=== PATIENT | female | born 1980 | race American Indian/Alaskan Native ===

== ENCOUNTER 2017-05-10 06:12 | Day surgery (SDC) | payer BC, OTHER ==
[2017-05-10 06:21] VITALS: BMI 21.4
[2017-05-10 06:52] LABS: BASO # 0.1 K/uL (0.0-0.2); EOS # 0.6 K/uL (0.0-0.7); EOS % 7.4 % (0.0-4.0); HEMATOCRIT 43.3 % (34.0-47.0); LYMPH # 2.6 K/uL (1.0-4.3); LYMPH % 32.6 % (20.0-40.0); MEAN CELL VOLUME 93.3 fl (81.0-99.0); MEAN CORPUSCULAR HEMOGLOBIN 29.8 pg (27.0-31.0); MEAN PLATELET VOLUME 9.5 fl (7.2-11.7); MONO # 0.6 K/uL (0.0-0.8); MONO % 7.9 % (0.0-10.0); NEUT % 51.1 % (50.0-75.0); RED CELL DISTRIBUTION WIDTH 14.8 % (11.5-14.5); WHITE BLOOD COUNT 7.9 K/uL (4.8-10.8)
[2017-05-10] MEDS ORDERED: Rocuronium 10 mg/ml (5 ml) ONE (07:28)
[2017-05-10] MEDS ORDERED: Lidocaine 4% (Laryng-O-Jet) Kit MM ONE (07:28)
[2017-05-10] MEDS ORDERED: Succinylcholine 200 mg/10 ml Inj IV ONE (07:28)
[2017-05-10] MEDS ORDERED: Propofol 10 mg/ml Inj (20 ML) ONE (07:28)
[2017-05-10] MEDS ORDERED: Midazolam 2 MG/2 ML VIAL ONE (07:28)
[2017-05-10] MEDS ORDERED: ePHEDrine 50 mg/ml Inj ONE (07:28)
[2017-05-10] MEDS ORDERED: Lactated Ringer's 1,000 ML IV ONE ×2 (08:30→08:45)
[2017-05-10] MEDS: Bupivacaine 0.5% Inj(30mL) ONE ×2 (08:56→09:00)
[2017-05-10] MEDS ORDERED: Dexamethasone 4 mg/1 ml ONE (09:02)
[2017-05-10] MEDS ORDERED: Lactated Ringer's 1,000 ML IV SCH (10:38)
[2017-05-10] MEDS ORDERED: Liquid Adhesive TOP ONE (10:53)
[2017-05-10] MEDS ORDERED: Oxycodone/Acetaminophen 5/325 mg Tab PO PRN (11:05)
[2017-05-10] MEDS: HYDROmorphone 0.5 mg/0.5 ml ISec IVP PRN ×2 (11:30→11:40)
[2017-05-10 13:06] VITALS: RESP 18
[2017-05-10 16:28] VITALS: BP 99/58; PULSE 77; TEMP 98.4; O2SAT 99
--- NOTE | 2017-05-14 10:19 | PCM.OP ---
Operative Report - Operative Report Date of Surgery/Procedure: 05/10/17 Time of Surgery/Procedure: 08:00 Surgeon: Dr. Tru Patel Cashier Manager: Dr. Leland Soto Anesthesia/Sedation: general/Dr. Alexander Pre-Operative Diagnosis: Endometriosis and abdominal pain Post-Operative Diagnosis: same Indication for Surgery: Endometriosis and abdominal pain Operative Findings: Multiple adhesions involving the sigmoid colon, small bowel and peritoneal pelvic floor Procedure/Operation Description: Lysis of sigmoid colon adhesions to the pelvic peritoneum, question of small bowel stricture. Brief History: Dr. Leland soto had already taken the patient to the operating room and intiated the robotic procedure when he noticed multiple adhesions obscuring the pelvic floor. Intraoperative consultation was obtained. Descitption of the Procedure: Dr. Soto had intiated the robotic procedure (separate dictation Dr. Soto). Using the robitic console the area in question was exmained and the adhesions invovled the pelvic floor as well as a small bowel adhesion to the right lateral peritoneum. Using blunt dissection the small bowel was addressed first and there seemed to be a small bowel stricture at first, however, upon furhter examination this was thought to be normal bowel. Our attention then turned to the sigmoid colon which was involving the pelvic floor. Using blunt and sharp dissection with the aid of electrocautery the sigmoid colon was disected from the pelvic floor as well as from the lateral peritoneal space. The colon was dissected to the level of the pelvic floor and once released was retracted superiorly. The pelvic space was now accessable and the operation was again turned over to Dr. Soto (separate dication Dr. Soto). Estimated Blood Loss: 2 cc Complications: none Specimen: none Discharge & Condition: stable
--- NOTE | 2017-05-16 23:22 | OP ---
PROCEDURE DATE: 05/10/2017 PREOPERATIVE DIAGNOSES: Pelvic pain, dysmenorrhea, dyspareunia, bladder pain, history of endometriosis, history of hydrosalpinges. POSTOPERATIVE DIAGNOSES: Pelvic pain, dysmenorrhea, dyspareunia, bladder pain, history of endometriosis, history of hydrosalpinges and pelvic adhesions. PROCEDURE PERFORMED: Cystoscopy with bilateral ureteral catheterization and stenting, retrograde injection of IC green into the right and left ureters, diagnostic hysteroscopy, laparoscopy, robotic Da Erin bilateral salpingectomy and excision of endometriosis, ovariolysis and right ureterolysis. Dr. Patel is to be dictating separately a lysis of adhesions from general surgery. SURGEON: Leland Soto MD PIZZA CHEF: Tru Patel MD, from general surgery ESTIMATED BLOOD LOSS: Minimal. COMPLICATIONS: None. SAMPLES: Multiple samples sent to pathology including left and right fallopian tube drains, Cummings catheter. BRIEF HISTORY: This patient is a 37-year-old patient who presented with a history of prior surgery multiple times for pelvic pain and endometriosis and she had progressive significant symptoms unresolved. Ultrasound revealed presence of bilateral hydrosalpinges as well as very significant pain on exam. Prior to the surgery, she was counseled with regard to risks and benefits of the procedure, and she also understood that given her history of prior surgeries and bladder pain, it was necessary to perform a cystoscopy as well as injection of dye in both ureters in order to make the procedure safer given her history of multiple prior surgeries. At this point, the patient signed the consent and was taken to the OR. DESCRIPTION OF PROCEDURE: After the patient was taken to the OR an IV was started and the patient was placed under generalized anesthesia. After satisfactory anesthesia was induced the patient was placed in the dorsal lithotomy position with great care to position her with all areas prone to pressure with excellent padding. At this point, the external genitalia and the abdomen were sterilely prepped and draped in the standard fashion. A time out was performed and at this point, the cystoscopy was inserted into the bladder under direct vision. A paredes-cystoscopy was performed and attention was paid to both ureteral orifices, which were in normal anatomical position. The left ureteral orifice was then catheterized with a 10-Israeli open-ended ureteral catheter, a solution of ICG was then injected for a 4 mL into the left ureteral catheter at the distal ureter. The ureteral catheter was then removed. Attention was then paid to the right ureteral orifice and at this point, an ureteral catheter was advanced to the level of the right distal ureter. In addition 4 mL of IC green were injected into right distal ureter. The ureteral catheter was then removed. The bladder was then inspected and noted to be free of tumors, stones, or bleeding sources. The cystoscopy was then removed and a 16-Israeli Cummings catheter was placed. At this point, attention was in the vaginal area where a speculum was placed in the vagina. Anterior lip of the cervix was visualized and grasped until the uterus was dilated and hysteroscope was inserted into the uterine cavity. The cavity appeared to be normal in shape without any fibroids, polyps, both tubal ostia were visualized and at this point, an uterine manipulator was placed in the uterus and attention was on the abdomen. After rescrubbing and regowning an incision was made below the umbilicus with the careful open laparoscopy technique. The abdominal cavity was entered bluntly and a blunt trocar was inserted in the abdomen and the abdomen was insufflated. Adhesions were immediately noticed after insufflation and Dr. Patel from general surgery was called in. An additional trocar was placed and through this trocar a lysis of adhesions was performed. The adhesions were from the prior surgery. At this point, he will dictate separately. At this point, two additional trocar were inserted, left mid quadrant and right upper quadrant. At this point, Da Erin robot XI was brought on to the field. It was docked and targeted and the procedure was commenced. The findings were as follows, there were some pelvic adhesions and abdominal adhesions that were present. Prior to entering the pelvis these were lysed by Dr. Patel from general surgery. There was an area by the right small bowel that appeared significantly adhered to the right pelvic sidewall and appeared to have a very small stricture, which was analyzing that by Dr. Patel who ultimately decided to just image and not intervene at this time. At this point, attention was on the pelvis where both ovaries adhered to the pelvic side wall, but more severely on the right hand side. Both ovaries appeared to be slightly smaller than averaging size. At this point, the attention was on the left hand side where the left tube appeared to have a large hydrosalpinx. Using both bipolar cautery and scissor the left hydrosalpinx was excised proceeding along the undersurface of the tube without injuring the meso of the ovary at all. On the right hand side the situation was much more complicated as the left ovary was completely stuck to the pelvic side wall adherent with what appeared to be endometriotic type tissue. The ureter was identified utilizing florescence and the peritoneum was entered and the ureter was lateralized and freed. Once this was done, along with the pelvic side wall, peritoneum was elevated and freed. The ovary was completely severely adherent to the right pelvic side wall and ovarian fossa. Once this was done, the fallopian tube appeared to be completely convoluted and completely turned around and it was progressively freed with black endometriosis like fluid noticed coming out. Again, a salpingectomy was performed on the right hand side commencing on the proximal end by the uterus and dissecting very slowly along the mesosalpinx very proximal to the tube in order not to damage the ovary and blood supply to the ovary. Once this extensive dissection was performed both specimens were removed within End[facility] and sent to pathology. The rest of the pelvis was examined and appeared to be in good condition. The right ureter was in perfect condition. The pelvis was abundantly irrigated. The bowel appeared to be in good condition with no damages. At this point, the Da Erin robot was undocked. All the instruments were removed and the incisions were closed in layers with 0 PDS for the fascia and 4-0 Monocryl for the skin. At the end of the procedure, all tapes and instruments counts are correct. The patient tolerated the procedure well and was taken to recovery room in excellent condition. Leland Soto MD
== END 2017-05-10 16:30 | disposition home or self-care (01) ==
LOC: H.OPSURG 06:12
PROVIDERS: ATTEND Obstetrics & Gynecology Reproductive Endocrinology
DX: R10.2 Pelvic and perineal pain (principal); N94.6 Dysmenorrhea, unspecified; N94.19 Other specified dyspareunia; R39.89 Other symptoms and signs involving the genitourinary system; N73.6 Female pelvic peritoneal adhesions (postinfective)
CPT/HCPCS: 36415; 44180; 52005; 58555; 85025; 86850; 86900; 88305; C1729; J0330; J0690; J1100; J1170; J2001; J2250; J2405; J2704; J2765; J3010; J7030; J7040; J7120

== ENCOUNTER 2018-04-18 09:04 | Day surgery (SDC) | payer BC ==
[2018-04-17 14:04] VITALS: BMI 24.5
[2018-04-18 09:58] LABS: BASO # 0.2 K/uL (0.0-0.2); EOS # 0.1 K/uL (0.0-0.7); EOS % 0.4 % (0.0-4.0); HEMOGLOBIN 14.2 g/dL (12.0-16.0); LYMPH % 19.1 % (20.0-40.0); MEAN CELL VOLUME 97.2 fl (81.0-99.0); MEAN CORPUSCULAR HGB CONC 32.9 g/dL (33.0-37.0); MEAN PLATELET VOLUME 9.2 fl (7.2-11.7); MONO % 4.6 % (0.0-10.0); NEUT # 15.6 K/uL (1.8-7.0); NEUT % 74.9 % (50.0-75.0); NRBC % 0.1 % (0.0-0.0); RBC 4.45 Mil/uL (3.80-5.20); RED CELL DISTRIBUTION WIDTH 16.2 % (11.5-14.5); WHITE BLOOD COUNT 20.8 K/uL (4.8-10.8)
[2018-04-18] MEDS ORDERED: ceFAZolin IV 2 gm in Dextrose 2 GM/50 ML BAG IVPB ONE (10:38)
[2018-04-18] MEDS ORDERED: Oxytocin 10 Units/ml Inj ONE (10:38)
[2018-04-18] MEDS ORDERED: Propofol 10 mg/ml Inj (20 ML) ONE (10:50)
[2018-04-18] MEDS ORDERED: Midazolam 2 MG/2 ML VIAL ONE (10:50)
[2018-04-18] MEDS ORDERED: Rocuronium 10 mg/ml (5 ml) ONE (10:50)
[2018-04-18] MEDS ORDERED: Succinylcholine 200 mg/10 ml Inj IV ONE (10:54)
[2018-04-18] MEDS ORDERED: Sevoflurane - Inhalation Anesthetic Liq (250 ml) ONE (11:01)
[2018-04-18] MEDS ORDERED: Tranexamic Acid 1,000 MG in Sodium Chloride 0.9% 100 ML IVPB ONE (11:31)
[2018-04-18] MEDS ORDERED: MethylPREDNISolone 40 mg Vial ONE (11:41)
[2018-04-18] MEDS ORDERED: Lactated Ringer's 1,000 ML IV ONE ×2 (12:00→13:30)
[2018-04-18] MEDS ORDERED: HYDROmorphone 0.5 mg/0.5 ml ISec IVP PRN (12:32)
[2018-04-18] MEDS ORDERED: Acetaminophen 650mg/20.3ml solution UD PO PRN (12:32)
[2018-04-18] MEDS ORDERED: Lactated Ringer's 1,000 ML IV SCH (12:45)
[2018-04-18 14:13] VITALS: RESP 18
[2018-04-18 16:08] VITALS: BP 113/56; PULSE 89; TEMP 98.8; O2SAT 96
--- NOTE | 2018-04-29 13:53 | OP ---
PROCEDURE DATE: 04/18/2018 SURGEON: Leland Soto MD STOPPER SETTER:None ANESTHESIOLOGIST: Rito Marr MD ANESTHETIC: General Endo PREOPERATIVE DIAGNOSES: MISSED POSTOPERATIVE DIAGNOSES: MISSED OPERATION PERFORMED: Ultrasound Guided Suction D&C COMPLICATIONS: None. SAMPLES: POC, Chromosomal Maternal Tissue, Maternal Blood DRAINS: ESTIMATED BLOOD LOSS: 100cc. HISTORY: PROVIDES HISTORY FINDINGS: 9 weeks size uterus CONSENT: The patient had been thoroughly evaluated and counseled regarding pros and cons of the procedure, the reasonable alternative, and the possible complications. She understood and accepted the risks involved. She accepted all the risks involved and all the questions had been answered to her satisfaction. DESCRIPTION OF PROCEDURE: Initiation of the case: After adequate anesthesia was obtained, the patient was placed in the dorsal lithotomy position with extreme care of placement of the patient without hyperextension or hyperflexing the hips. At this point, the patient was prepped and draped, the surgeon was gowned and gloved. A time- out was taken according to the hospital procedure and the procedure was started. After emptying the bladder the cervix was dilated under direct ultrasound visualization. A 10 somali cannula was inserted in the cavity and abundant products of conceptions were obtained. The cannula was removed and the cavity was checked with ultrasound. Therewas no deed for additional curetting. The patient was waken up and taken to recovery room in excellent condition Leland Soto MD [facility]
== END 2018-04-18 16:30 | disposition home or self-care (01) ==
LOC: H.OPSURG 09:04
PROVIDERS: ATTEND Obstetrics & Gynecology Reproductive Endocrinology
DX: O02.1 Missed abortion (principal)
CPT/HCPCS: 36415; 59820; 85025; 86850; 86900; 88300; 88305; J0330; J0690; J2001; J2210; J2250; J2405; J2704; J2920; J3010; J7030; J7120

== ENCOUNTER 2018-12-03 07:54 | Day surgery (SDC) | payer BC ==
[2018-11-28 12:27] VITALS: BMI 25.4
[2018-12-03 09:15] LABS: BASO % 0.2 % (0.0-2.0); EOS # 0.1 K/uL (0.0-0.7); EOS % 0.7 % (0.0-4.0); HEMOGLOBIN 12.5 g/dL (12.0-16.0); LYMPH # 3.6 K/uL (1.0-4.3); LYMPH % 27.7 % (20.0-40.0); MEAN CELL VOLUME 96.5 fl (81.0-99.0); MEAN CORPUSCULAR HEMOGLOBIN 31.5 pg (27.0-31.0); MEAN CORPUSCULAR HGB CONC 32.6 g/dL (33.0-37.0); MEAN PLATELET VOLUME 8.6 fl (7.2-11.7); MONO # 0.8 K/uL (0.0-0.8); MONO % 6.6 % (0.0-10.0); NEUT # 8.3 K/uL (1.8-7.0); NEUT % 64.8 % (50.0-75.0); NRBC % 0.1 % (0.0-0.0); RBC 3.97 Mil/uL (3.80-5.20); RED CELL DISTRIBUTION WIDTH 15.3 % (11.5-14.5); WHITE BLOOD COUNT 12.9 K/uL (4.8-10.8)
[2018-12-03] MEDS ORDERED: Propofol 10 mg/ml Inj (20 ML) ONE (10:33)
[2018-12-03] MEDS ORDERED: Midazolam 2 MG/2 ML VIAL ONE (10:38)
[2018-12-03] MEDS ORDERED: Lactated Ringer's 1,000 ML IV ONE ×2 (12:00→12:15)
[2018-12-03] MEDS ORDERED: Oxytocin 10 Units/ml Inj ONE (12:09)
[2018-12-03] MEDS ORDERED: Dexamethasone 4 mg/1 ml ONE (12:24)
[2018-12-03 14:39] VITALS: RESP 16
[2018-12-03 15:25] VITALS: BP 111/70; PULSE 93; TEMP 98.1; O2SAT 99
--- NOTE | 2018-12-04 08:09 | OP ---
PROCEDURE DATE: 12/03/2018 SURGEON: Leland Soto MD TECHNOLOGY ADOPTION MANAGER: Tru Patel MD ANESTHESIOLOGIST: MD Andrews Billingsley TYPE OF ANESTHESIA: General PREOPERATIVE DIAGNOSES: 1. incomplete POSTOPERATIVE DIAGNOSES: 1. incomplete PROCEDURES PERFORMED: 1. Exam under anesthesia. 2. ultrasound guided suction dandc COMPLICATIONS: None. SAMPLES SENT: 1. poc for genetics INDICATION FOR THE PROCEDURE AND CONSENT: The patient had a loss at 9 weeks. afte one week of expectant management the still did not miscarry FINDINGS OF SURGERY: 9 weel size uterus . utrasound reveals fetus at 9 weeks no fhr on dopplers DESCRIPTION OF THE PROCEDURE: Initiation of the case: After adequate anesthesia was obtained, the patient was placed in the dorsal lithotomy position, and with extreme care, placement of the patient with hyperextension and hyperflexing of the hips. At this point, the patient was prepped and draped. The surgeon was gowned and gloved. A timeout was taken according to the hospital procedure and the procedure was started. the dervix was dilated and under ultrasound giodance ta #9 courette was inserted in the cavity . The contents were evacuated. Minimal beeding was observed the entire procedure was performed under ultrasound guidance at the end of the procedure all tapes and instrument counts were correct. The patient tolerated the procedure well and was taken to the recovery room in excellent condition. Leland Soto MD
== END 2018-12-03 15:55 | disposition home or self-care (01) ==
LOC: H.OPSURG 07:54
PROVIDERS: ATTEND Obstetrics & Gynecology Reproductive Endocrinology
DX: O03.4 Incomplete spontaneous abortion without complication (principal)
CPT/HCPCS: 36415; 59812; 85025; 86850; 86900; 88305; J0690; J1100; J1885; J2001; J2210; J2250; J2405; J2704; J3010; J7030; J7120